=== PATIENT | male | born 1995 | race Hispanic/Latino ===

== ENCOUNTER 2021-05-24 12:27 | Outpatient (CLI) | payer OTHER ==
--- NOTE | 2021-05-24 14:42 | XRay Report ---
LUMBOSACRAL SPINE 3 VIEWS INDICATION: BACK PAIN. COMPARISON: None. IMPRESSION: Normal alignment. Mild disc space narrowing and facet arthropathy are identified at L5- S1. The remaining levels are within normal limits. The sacrum and SI joints are unremarkable. No acu te osseous or soft tissue abnormality. Signer Name: Galileo Veloz Jr, MD Signed: 05/24/2021 2:37 PM Workstation Name: [id number]
== END 2021-05-24 12:28 | disposition home or self-care (01) ==
LOC: XRAY 12:27
PROVIDERS: ATTEND Internal Medicine
DX: M47.817 Spondylosis without myelopathy or radiculopathy, lumbosacral region (principal)
CPT/HCPCS: 72100